=== PATIENT | female | born 1985 | race Caucasian/White ===

== ENCOUNTER 2023-06-14 09:06 | Emergency (ER) | payer MEDICAID ==
[~2023-06-14] VITALS: Ht 162.6 cm; Wt 108.0 kg
[~2023-06-14 09:06] MED LIST: ALBU6.7H15; DEXT15SY3
[2023-06-14 09:21] VITALS: TEMP 98.6; O2SAT 100
[2023-06-14] MEDS: IPRATROPIUM/ALBUTEROL 0.5-3(2.5)MG/3ML NEB HHN ONE (10:30)
[2023-06-14 10:43] VITALS: BP 135/82; PULSE 82; RESP 18
[2023-06-14] MEDS: PREDNISONE 20MG TABLET PO STA (10:45)
[2023-06-14] MEDS ORDERED: AZIT250T MT (11:19)
== END 2023-06-14 12:24 | disposition home or self-care (01) ==
LOC: ER 09:06
DX: R05.9 Cough, unspecified (principal); J45.909 Unspecified asthma, uncomplicated; Z98.890 Other specified postprocedural states
CPT/HCPCS: 99283; 71045; J7512